=== PATIENT | male | born 1955 | race Caucasian/White ===

== ENCOUNTER → 2016-11-10 | Outpatient (REF) | payer BC | LOC: M LAB REF 13:05 | PROVIDERS: ATTEND Internal Medicine | DX: F41.9 Anxiety disorder, unspecified (principal) ==

== ENCOUNTER → 2017-10-26 | Outpatient (CLI) | payer BC | LOC: M WUC 10:38 | DX: M25.571 Pain in right ankle and joints of right foot (principal) | CPT/HCPCS: 73610 ==

== ENCOUNTER → 2017-11-21 | Outpatient (REF) | payer BC ==
[2017-11-21 14:15] LABS: VALPROIC ACID (DEPAKOTE) 38.9 UG/ML (50.0-100.0)
== END ==
LOC: M LAB REF 13:31
DX: F41.9 Anxiety disorder, unspecified (principal)
CPT/HCPCS: 80164

== ENCOUNTER → 2018-11-10 | Outpatient (REF) | payer BC | LOC: M LAB REF 12:50 | PROVIDERS: ATTEND Internal Medicine | DX: F41.9 Anxiety disorder, unspecified (principal) ==

== ENCOUNTER → 2019-11-12 | Outpatient (REF) | payer MEDICARE, BC | LOC: M LAB REF 16:16 | PROVIDERS: ATTEND Internal Medicine | DX: F41.9 Anxiety disorder, unspecified (principal) ==

== ENCOUNTER → 2020-06-09 | Outpatient (REF) | payer MEDICARE, BC | LOC: M LAB REF 16:24 | PROVIDERS: ATTEND Internal Medicine | DX: F41.9 Anxiety disorder, unspecified (principal) ==

== ENCOUNTER → 2022-06-02 | Outpatient (REF) | payer MEDICARE, BC | LOC: M LAB REF 12:18 | PROVIDERS: ATTEND Internal Medicine | DX: F41.9 Anxiety disorder, unspecified (principal) ==

== ENCOUNTER → 2022-12-06 | Outpatient (REF) | payer MEDICARE, BC | LOC: M LAB REF 12:30 | PROVIDERS: ATTEND Internal Medicine | DX: F34.1 Dysthymic disorder (principal); R01.1 Cardiac murmur, unspecified ==

== ENCOUNTER → 2023-06-08 | Outpatient (CLI) | payer MEDICARE, BC | LOC: M CARPUL 09:18 | PROVIDERS: ATTEND Internal Medicine | DX: R01.1 Cardiac murmur, unspecified (principal); I08.0 Rheumatic disorders of both mitral and aortic valves ==

== ENCOUNTER → 2023-12-08 | Outpatient (REF) | payer MEDICARE, BC ==
[2023-12-10 00:03] LABS: PROTEIN, TOTAL SO 7.4 g/dL (6.1-8.1)
== END ==
LOC: M LAB REF 12:01
PROVIDERS: ATTEND Internal Medicine
DX: R77.9 Abnormality of plasma protein, unspecified (principal)

== ENCOUNTER 2024-10-03 09:55 | Emergency (ER) | payer MEDICARE, BC ==
[~2024-10-03] VITALS: Ht 175.3 cm; Wt 70.0 kg
[2024-10-03] MEDS ORDERED: ATOR40TA75 PO (10:09)
[2024-10-03] MEDS ORDERED: AMLO1TAB24 PO (10:09)
[2024-10-03] MEDS ORDERED: DIVA1TAB48 PO (10:09)
[2024-10-03] MEDS ORDERED: ATIV1TAB10 PO (10:09)
[2024-10-03] MEDS ORDERED: SERT150C PO (10:09)
[2024-10-03] MEDS ORDERED: ZOLO100T PO (10:22)
[2024-10-03] MEDS ORDERED: OLME20TA50 PO (10:54)
[2024-10-03 10:55] LABS: BASO # 0.1 10^3/uL (0.0-0.2); BASO % 0.9 % (0.0-1.0); EOS # 0.3 10^3/uL (0.0-0.5); EOS % 4.0 % (0.0-3.0); LYMPH # 1.7 10^3/uL (1.5-5.0); LYMPH % 21.2 % (24.0-44.0); MONO # 0.6 10^3/uL (0.0-0.8); MONO % 7.4 % (2.0-8.0); NEUTROPHILS # 5.2 10^3/uL (1.5-8.5); NEUTROPHILS % 66.4 % (36.0-66.0); PLATELET COUNT, AUTOMATED 308 10^3/uL (150-450)
[2024-10-03] MEDS ORDERED: HOME MED LIST COMPLETE! XX SCH (10:55)
[2024-10-03 11:33] LABS: ALT/SGPT 21.0 U/L (7.0-40); AST/SGOT 24.0 U/L (<34); CALCIUM LEVEL 9.5 MG/DL (8.3-10.6); CARBON DIOXIDE LEVEL 26.0 MMOL/L (20-31); CHLORIDE LEVEL 103.0 MMOL/L (98-107); CREATININE FOR GFR 0.92 MG/DL (0.70-1.30); GLOMERULAR FILTRATION RATE 88.9 (>42); POTASSIUM SERUM 4.7 MMOL/L (3.5-5.1); SODIUM LEVEL 141.0 MMOL/L (136-145)
[2024-10-03 12:27] VITALS: BP 201/87
[2024-10-03] MEDS: amLODIPine 5 MG TAB PO ONE (12:27)
[2024-10-03 13:13] LABS: CK-MB VALUE MASS < 1.0 NG/ML (<3.6)
[2024-10-03 13:14] LABS: CPK CREATINE PHOSPHOKINASE 99 U/L (46-171)
[2024-10-03 13:33] LABS: CK-MB VALUE MASS 1.1 NG/ML (<3.6)
[2024-10-03 13:38] LABS: CPK CREATINE PHOSPHOKINASE 109.0 U/L (46-171); MB/CK RELATIVE INDEX 1.0 (< OR =4)
[2024-10-03 14:27] LABS: CK-MB VALUE MASS < 1.0 NG/ML (<3.6)
[2024-10-03 14:29] LABS: CPK CREATINE PHOSPHOKINASE 90 U/L (46-171)
[2024-10-03 14:46] VITALS: BP 141/68; TEMP 98.4; O2SAT 96
== END 2024-10-03 14:57 | disposition home or self-care (01) ==
LOC: M ED 09:55
DX: I10 Essential (primary) hypertension (principal); F41.9 Anxiety disorder, unspecified; F32.A Depression, unspecified; Z79.899 Other long term (current) drug therapy